=== PATIENT | female | born 1955 | race Caucasian/White ===

== ENCOUNTER → 2020-05-25 | Outpatient (CLI) | payer OTHER | LOC: NM 09:00 | DX: R10.84 Generalized abdominal pain (principal); R14.0 Abdominal distension (gaseous); G89.29 Other chronic pain | CPT/HCPCS: 78264; A9541 ==

== ENCOUNTER → 2021-05-02 | Outpatient (CLI) | payer OTHER | LOC: KOH-I 04-27 08:30 | DX: R10.11 Right upper quadrant pain (principal); R14.0 Abdominal distension (gaseous); R11.2 Nausea with vomiting, unspecified; T71.9XXA Asphyxiation due to unspecified cause, initial encounter | CPT/HCPCS: 71046; 76705 ==

== ENCOUNTER → 2021-08-14 | Outpatient (CLI) | payer OTHER | LOC: NM 09:00 | DX: R10.11 Right upper quadrant pain (principal); R10.84 Generalized abdominal pain; R07.9 Chest pain, unspecified; R11.2 Nausea with vomiting, unspecified | CPT/HCPCS: 78227; A9537; J2805 ==

== ENCOUNTER 2021-10-21 11:42 | Emergency (ER) | payer OTHER ==
[2021-10-21 12:52] LABS: HEMOGLOBIN 14.9 gm/dl (12.3-15.3); RED BLOOD COUNT 5.28 M/UL (4.00-5.10); WHITE BLOOD COUNT 7.4 K/UL (4.5-11.0)
[2021-10-21] MEDS ORDERED: NITROGLYCERIN0.4 MG SL (16:32)
[2021-10-21] MEDS ORDERED: BAYER CHEWABLE81 MG PO (16:32)
[2021-10-21] MEDS ORDERED: COLACE 100MG C100 MG PO (16:32)
[2021-10-21] MEDS ORDERED: AMOX TR-K CLV1 EAC4 PO (16:32)
== END 2021-10-21 17:14 | disposition left against medical advice (07) ==
LOC: ER1 11:42
DX: K57.32 Diverticulitis of large intestine without perforation or abscess without bleeding (principal); I21.4 Non-ST elevation (NSTEMI) myocardial infarction; N20.0 Calculus of kidney; E78.5 Hyperlipidemia, unspecified; I10 Essential (primary) hypertension; K21.9 Gastro-esophageal reflux disease without esophagitis; Z87.442 Personal history of urinary calculi
CPT/HCPCS: 71045; 80053; 81001; 82550; 82553; 83690; 84484; 85025; 87086; 93005; 96374; 96375; 99283; C9113; J2270; J2405; Q9967

== ENCOUNTER → 2022-01-16 | Outpatient (CLI) | payer OTHER ==
[~2022-01-16] MED LIST: AMOX TR-K CLV1 EAC4 PO; BAYER CHEWABLE81 MG PO; COLACE 100MG C100 MG PO; NITROGLYCERIN0.4 MG SL
== END ==
LOC: KOH-I 12:01
DX: R10.32 Left lower quadrant pain (principal); N20.0 Calculus of kidney; M54.9 Dorsalgia, unspecified
CPT/HCPCS: 74018